=== PATIENT | male | born 1935 | race African-American/Black ===

== ENCOUNTER 2019-01-30 18:23 | Inpatient (IN) | payer MEDICARE, OTHER ==
[~2019-01-30] VITALS: Ht 170.2 cm; Wt 94.3 kg
[~2019-01-30 18:23] MED LIST: AMLO10TA80 PO; ATEN-42 PO; HYDR12.529 PO; NAPR375T5 PO; SALS500T19 PO; SIMV20TA6 PO; gabapentin; lisinopril; methocarbamol
[2019-01-30] MEDS ORDERED: LEVETIRACETAM 500MG PREMIX 100 ML IV ONE (19:15)
[2019-01-30] MEDS ORDERED: SODIUM CHLORIDE 0.9% 500 ML IV ONE (19:17)
[2019-01-30 20:14] LABS: BASOPHILS % 0.6 % (0.0-2.0); EOSINOPHILS % 0.8 % (0.0-5.0); HEMATOCRIT. 33.6 % (42.0-52.0); HEMOGLOBIN. 11.1 g/dL (14.0-18.0); LYMPHOCYTES % 13.3 % (20.0-50.0); MEAN CORPUSCULAR HEMOGLOBIN 29.3 pg (28.0-32.0); MEAN CORPUSCULAR VOLUME 88.6 fL (80.0-94.0); MEAN PLATELET VOLUME 8.3 fl (7.4-10.4); MONOCYTES % 8.9 % (2.0-8.0); NEUTROPHILS % 76.4 % (40.0-76.0); PLATELET 351 x1000/uL (130-400); RED BLOOD CELL COUNT 3.79 mill/uL (4.7-6.1)
[2019-01-30 20:21] LABS: CHLORIDE 106 mEq/L (98-107)
[2019-01-31] VITALS (53 sets, daily range): BP systolic 59–161; BP diastolic 16–117
[2019-01-31 00:23] LABS: INR 1.1; PARTIAL THROMBOPLASTIN TIME 26.8 sec (23.4-31.0); PROTHROMBIN TIME 11.6 sec (9.6-11.0)
[2019-01-31] MEDS ORDERED: NICARDIPINE 100 MG in SODIUM CHLORIDE 0.9% 60 ML IV PRN (01:30)
[2019-01-31] MEDS: DEXT 5%/LACTATED RINGERS 1,000 ML IV SCH ×2 (02:19→17:43)
[2019-01-31 05:38] LABS: BASOPHILS % 0.5 % (0.0-2.0); HEMATOCRIT. 35.6 % (42.0-52.0); HEMOGLOBIN. 11.4 g/dL (14.0-18.0); LYMPHOCYTES % 9.3 % (20.0-50.0); MEAN CORPUSCULAR HEMOGLOBIN 29.2 pg (28.0-32.0); MEAN CORPUSCULAR VOLUME 91.3 fL (80.0-94.0); MEAN PLATELET VOLUME 8.5 fl (7.4-10.4); MONOCYTES % 7.4 % (2.0-8.0); NEUTROPHILS % 82.8 % (40.0-76.0); PLATELET 288 x1000/uL (130-400); RED CELL DISTRIBUTION WIDTH 17.1 % (11.6-14.6)
[2019-01-31 05:53] LABS: CHLORIDE 106 mEq/L (98-107)
[2019-01-31] MEDS ORDERED: DEXAMETHASONE 4MG/ML 1ML VIAL IV SCH (06:00)
[2019-01-31] MEDS: LEVETIRACETAM 500 MG in SODIUM CHLORIDE 0.9% 100 ML IV SCH ×2 (08:58→21:12)
[2019-01-31] MEDS: PANTOPRAZOLE SODIUM 40 MG/VIAL IV SCH (08:58)
[2019-01-31] MEDS ORDERED: LEVETIRACETAM 500 MG in SODIUM CHLORIDE 0.9% 100 ML IV SCH (09:00)
[2019-01-31] MEDS: PILOCARPINE HCL 4% OPHTH DROPS 15ML BOTHEYE SCH ×2 (15:39→21:12)
[2019-01-31] MEDS ORDERED: ONDANSETRON HCL 4MG/2ML INJ IV NR (16:45)
[2019-01-31] MEDS ORDERED: ONDANSETRON HCL 4MG TABLET PO PRN (18:00)
[2019-01-31] MEDS ORDERED: ONDANSETRON HCL 4MG/2ML INJ IV PRN (18:45)
[2019-01-31] MEDS: ATORVASTATIN CALCIUM 20MG TABLET PO SCH (21:12)
[2019-02-01] VITALS (51 sets, daily range): BP systolic 44–165; BP diastolic 20–103
[2019-02-01 05:27] LABS: BASOPHILS % 0.3 % (0.0-2.0); HEMOGLOBIN. 10.8 g/dL (14.0-18.0); LYMPHOCYTES % 9.3 % (20.0-50.0); MEAN CORPUSCULAR VOLUME 91.1 fL (80.0-94.0); MEAN PLATELET VOLUME 8.7 fl (7.4-10.4); MONOCYTES % 10.6 % (2.0-8.0); NEUTROPHILS % 79.8 % (40.0-76.0); PLATELET 232 x1000/uL (130-400); RED BLOOD CELL COUNT 3.73 mill/uL (4.7-6.1); RED CELL DISTRIBUTION WIDTH 17.1 % (11.6-14.6)
[2019-02-01] MEDS: PILOCARPINE HCL 4% OPHTH DROPS 15ML BOTHEYE SCH ×3 (08:17→21:53)
[2019-02-01] MEDS: PANTOPRAZOLE SODIUM 40 MG/VIAL IV SCH (08:55)
[2019-02-01] MEDS: LEVETIRACETAM 500 MG in SODIUM CHLORIDE 0.9% 100 ML IV SCH ×2 (08:56→21:53)
[2019-02-01] MEDS: MORPHINE SULFATE 4 MG/ML CPJ (NOT FOR IM USE) IV PRN ×3 (10:07→21:53)
[2019-02-01] MEDS: DEXT 5%/LACTATED RINGERS 1,000 ML IV SCH (11:31)
[2019-02-01] MEDS: ATENOLOL 50 MG TABLET PO SCH (11:31)
[2019-02-01] MEDS ORDERED: SODIUM POLYSTYRENE SULFONATE 15 G/60 ML BOT PO SCH (12:00)
[2019-02-01 12:15] LABS: PHOSPHORUS 4.9 mg/dL (2.5-4.9)
[2019-02-01] MEDS ORDERED: SODIUM CHLORIDE 0.9% 1,000 ML IV ONE (13:15)
[2019-02-01] MEDS ORDERED: IPRATROPIUM/ALBUTEROL 0.5-3(2.5)MG/3ML NEB HHN PRN (13:15)
[2019-02-01] MEDS ORDERED: LEVOFLOXACIN 500MG PREMIX 100 ML IV SCH (15:00)
[2019-02-01 15:09] LABS: BG FRACTION INSPIRED OXYGEN 21; BG HCO3 ACT 2.2 mmol/L (22.0-26.0); BG PCO2 10.6 mmHg (35.0-45.0); BG PH 6.939 (7.350-7.450); BG PO2 44.6 mmHg (75.0-100.0); BG SAMPLE SITE LEFT BRACHIAL; BG TOTAL HEMOGLOBIN < 4.5 g/dL (12.0-18.0); BG VENT MODE ROOM AIR
[2019-02-01] MEDS ORDERED: SODIUM BICARBONATE 8.4% 1 MEQ/ML 50ML SYR IV NR (15:45)
[2019-02-01 15:59] LABS: BG BASE EXCESS -20.1 mmol/L (-2.0-2.0); BG CARBOXYHEMOGLOBIN 0.3 % (0.5-1.5); BG DEOXYHEMOGLOBIN 2.8 % (0.0-5.0); BG FRACTION INSPIRED OXYGEN 21; BG HCO3 ACT 6.9 mmol/L (22.0-26.0); BG METHEMOGLOBIN 0.4 % (0.0-1.5); BG OXYGEN SATURATION 97.2 % (92.0-98.5); BG OXYHEMOGLOBIN 96.5 % (94.0-97.0); BG PCO2 20.2 mmHg (35.0-45.0); BG PO2 119.1 mmHg (75.0-100.0); BG SAMPLE SITE LEFT BRACHIAL; BG TOTAL HEMOGLOBIN 11.1 g/dL (12.0-18.0); BG VENT MODE ROOM AIR
[2019-02-01] MEDS ORDERED: RACEPINEPHRINE 2.25% 0.5ML NEB VIAL HHN NR (16:00)
[2019-02-01] MEDS ORDERED: RACEPINEPHRINE 2.25% 0.5ML NEB VIAL HHN PRN (16:00)
[2019-02-01] MEDS: SODIUM BICARBONATE 150 MEQ in DEXTROSE 5% WATER 1,000 ML IV SCH ×3 (16:14→17:32)
[2019-02-01] MEDS ORDERED: SODIUM BICARBONATE 8.4% MEQ/ML 50ML VIAL IV NR (16:19)
[2019-02-01] MEDS ORDERED: VANCOMYCIN 1 G PREMIX 200 ML IV SCH (18:00)
[2019-02-01] MEDS: ATORVASTATIN CALCIUM 20MG TABLET PO SCH (21:00)
[2019-02-01] MEDS ORDERED: NOREPINEPHRINE 8 MG in DEXT 5% WATER 242 ML IV PRN (21:30)
[2019-02-01] MEDS ORDERED: SODIUM CHLORIDE 0.9% 1000ML BAG (SEPSIS BOLUS) IV NR ×2 (22:00→22:30)
[2019-02-01] MEDS ORDERED: CEFTRIAXONE 2 G PREMIX 50 ML IV SCH (22:00)
[2019-02-01 23:20] LABS: CLARITY URINE TURBID (CLEAR); KETONES URINE TRACE (NEGATIVE); LEUKOCYTE ESTERASE URINE 2+ (NEGATIVE); NITRITE URINE NEGATIVE (NEGATIVE); OCCULT BLOOD URINE 3+ (NEGATIVE); PROTEIN URINE 3+ (NEGATIVE); SPECIFIC GRAVITY URINE 1.009 (1.005-1.030); UROBILINOGEN URINE 0.2 E.U./dL (0.2-1.0)
[2019-02-01 23:25] LABS: COLOR URINE BLOODY (YELLOW)
[2019-02-01] MEDS: CEFTRIAXONE 2 G in DEXTROSE 5% WATER 50 ML IV SCH (23:49)
[2019-02-02] VITALS (147 sets, daily range): BP systolic 53–180; BP diastolic 23–126
[2019-02-02] MEDS: SODIUM BICARBONATE 150 MEQ in DEXTROSE 5% WATER 1,000 ML IV SCH ×3 (00:40→20:29)
[2019-02-02] MEDS: MORPHINE SULFATE 4 MG/ML CPJ (NOT FOR IM USE) IV PRN ×4 (01:04→20:38)
[2019-02-02] MEDS: PILOCARPINE HCL 4% OPHTH DROPS 15ML BOTHEYE SCH ×3 (04:59→21:06)
[2019-02-02 05:44] LABS: HEMOGLOBIN. 11.1 g/dL (14.0-18.0); MEAN CORPUSCULAR HEMOGLOBIN 28.9 pg (28.0-32.0); MEAN CORPUSCULAR VOLUME 91.1 fL (80.0-94.0); MEAN PLATELET VOLUME 9.1 fl (7.4-10.4); PLATELET 147 x1000/uL (130-400); RED BLOOD CELL COUNT 3.84 mill/uL (4.7-6.1); RED CELL DISTRIBUTION WIDTH 17.1 % (11.6-14.6)
[2019-02-02 05:56] LABS: INR 1.6; PARTIAL THROMBOPLASTIN TIME 29.2 sec (23.4-31.0); PROTHROMBIN TIME 15.9 sec (9.6-11.0)
[2019-02-02] MEDS ORDERED: DEXTROSE 50% WATER 50ML SYRINGE IV NR (06:45)
[2019-02-02] MEDS ORDERED: POVIDONE-IODINE OINT 28.4GM TOP ONE (06:53)
[2019-02-02] MEDS ORDERED: BACITRACIN 15GM TUBE TOP ONE (06:53)
[2019-02-02] MEDS ORDERED: THROMBIN (BOVINE) 5000 UNITS/VIAL TOP ONE (06:54)
[2019-02-02] MEDS ORDERED: LIDOCAINE HCL/EPINEPHRINE 1%-EPI 1:100,000 20 ML VIAL ONE (06:54)
[2019-02-02] MEDS ORDERED: BACITRACIN 50,000 UNITS/VIAL ONE (06:54)
[2019-02-02] MEDS ORDERED: INSULIN REGULAR (HUMULIN R) 300UNITS/3ML IV NR (07:00)
[2019-02-02] MEDS ORDERED: FENTANYL CITRATE/PF 50MCG/ML 2ML VIAL ONE (07:09)
[2019-02-02] MEDS ORDERED: ROCURONIUM BROMIDE 10MG/ML VIAL 5ML IV ONE ×2 (07:09→07:20)
[2019-02-02] MEDS ORDERED: PROPOFOL 200MG/20ML VIAL IV ONE (07:09)
[2019-02-02] MEDS ORDERED: NEOSTIGMINE METHYLSULFATE 1MG/ML 10 ML VIAL ONE (07:09)
[2019-02-02] MEDS ORDERED: INSULIN REGULAR (HUMULIN R) 300UNITS/3ML ONE (07:11)
[2019-02-02] MEDS ORDERED: MIDAZOLAM HCL 2 MG/2 ML VIAL ONE (07:16)
[2019-02-02] MEDS ORDERED: CALCIUM CHLORIDE 1GM/10ML SYR IV ONE (08:02)
[2019-02-02] MEDS ORDERED: NICARDIPINE 100 MG in SODIUM CHLORIDE 0.9% 60 ML IV PRN (08:15)
[2019-02-02] MEDS: LEVETIRACETAM 500 MG in SODIUM CHLORIDE 0.9% 100 ML IV SCH ×2 (09:00→20:46)
[2019-02-02] MEDS: ATENOLOL 50 MG TABLET PO SCH (09:00)
[2019-02-02 09:33] LABS: BG BASE EXCESS -8.6 mmol/L (-2.0-2.0); BG CARBOXYHEMOGLOBIN 0.3 % (0.5-1.5); BG DEOXYHEMOGLOBIN 0.4 % (0.0-5.0); BG HCO3 ACT 16.8 mmol/L (22.0-26.0); BG METHEMOGLOBIN 0.3 % (0.0-1.5); BG OXYGEN SATURATION 99.6 % (92.0-98.5); BG PCO2 34.5 mmHg (35.0-45.0); BG PH 7.306 (7.350-7.450); BG PO2 528.3 mmHg (75.0-100.0); BG SAMPLE SITE RIGHT RADIAL; BG TIDAL VOLUME(mL) 500 mL; BG TOTAL HEMOGLOBIN 11.6 g/dL (12.0-18.0); BG VENT MODE VENT - A/C; BG VENT RATE 10 set
[2019-02-02 09:50] LABS: INR 1.6; PROTHROMBIN TIME 16.1 sec (9.6-11.0)
[2019-02-02 09:54] LABS: PHOSPHORUS 6.2 mg/dL (2.5-4.9)
[2019-02-02 12:24] LABS: PLATELET ESTIMATE NORMAL
[2019-02-02 12:25] LABS: CREATINE KINASE 548 IU/L (39-308)
[2019-02-02] MEDS ORDERED: PHYTONADIONE 10MG/ML AMP SUBCUT NR (13:15)
[2019-02-02] MEDS ORDERED: SODIUM POLYSTYRENE SULFONATE 15 G/60 ML BOT PO NR (14:00)
[2019-02-02] MEDS: PHENYLEPHRINE 40 MG in DEXT 5% WATER 246 ML IV PRN ×2 (15:00→20:28)
[2019-02-02] MEDS ORDERED: LEVOFLOXACIN 250MG PREMIX 50 ML IV SCH (15:00)
[2019-02-02] MEDS ORDERED: MORPHINE SULFATE 4 MG/ML CPJ (NOT FOR IM USE) IV NR (17:45)
[2019-02-02] MEDS ORDERED: NOREPINEPHRINE 8 MG in SODIUM CHLORIDE 0.9% 242 ML IV PRN ×2 (20:35→22:50)
[2019-02-02] MEDS ORDERED: PHENYLEPHRINE 40 MG in SODIUM CHLORIDE 0.9% 246 ML IV PRN (20:35)
[2019-02-02] MEDS ORDERED: SODIUM POLYSTYRENE SULFONATE 15 G/60 ML BOT NG NR (20:45)
[2019-02-02] MEDS: ATORVASTATIN CALCIUM 20MG TABLET PO SCH (20:46)
[2019-02-02] MEDS ORDERED: INSULIN LISPRO 100 UNITS/ML SUBCUT SCH (21:00)
[2019-02-02] MEDS ORDERED: BLOOD SUGAR DIAGNOSTIC STRIP TEST SCH (21:00)
[2019-02-03] VITALS (34 sets, daily range): BP systolic 51–179; BP diastolic 25–128
[2019-02-03] MEDS: BLOOD SUGAR DIAGNOSTIC STRIP TEST SCH ×2 (00:04→06:17)
[2019-02-03] MEDS: DEXTROSE 50% WATER 50ML SYRINGE IV PRN ×3 (00:10→08:05)
[2019-02-03] MEDS: CEFTRIAXONE 2 G in DEXTROSE 5% WATER 50 ML IV SCH (00:11)
[2019-02-03] MEDS: MORPHINE SULFATE 4 MG/ML CPJ (NOT FOR IM USE) IV PRN ×2 (01:21→05:17)
[2019-02-03] MEDS: PHENYLEPHRINE 40 MG in SODIUM CHLORIDE 0.9% 246 ML IV PRN ×2 (02:11→06:18)
[2019-02-03] MEDS: SODIUM BICARBONATE 150 MEQ in DEXTROSE 5% WATER 1,000 ML IV SCH (04:45)
[2019-02-03 06:00] LABS: HEMATOCRIT. 41.4 % (42.0-52.0); HEMOGLOBIN. 12.4 g/dL (14.0-18.0); MEAN CORPUSCULAR HEMOGLOBIN 29.3 pg (28.0-32.0); MEAN CORPUSCULAR VOLUME 97.8 fL (80.0-94.0); PLATELET 92 x1000/uL (130-400); RED BLOOD CELL COUNT 4.23 mill/uL (4.7-6.1); RED CELL DISTRIBUTION WIDTH 18.1 % (11.6-14.6)
[2019-02-03] MEDS: INSULIN LISPRO 100 UNITS/ML SUBCUT SCH ×2 (06:00)
[2019-02-03] MEDS: PILOCARPINE HCL 4% OPHTH DROPS 15ML BOTHEYE SCH (06:17)
[2019-02-03 06:26] LABS: INR 2.5; PARTIAL THROMBOPLASTIN TIME 40.8 sec (23.4-31.0); PROTHROMBIN TIME 25.1 sec (9.6-11.0)
[2019-02-03] MEDS ORDERED: DEXTROSE 10% WATER 500 ML IV ONE (08:00)
[2019-02-03 08:25] LABS: BG BASE EXCESS -20.4 mmol/L (-2.0-2.0); BG CARBOXYHEMOGLOBIN 0.3 % (0.5-1.5); BG DEOXYHEMOGLOBIN 0.5 % (0.0-5.0); BG FRACTION INSPIRED OXYGEN 100; BG HCO3 ACT 7.3 mmol/L (22.0-26.0); BG METHEMOGLOBIN 0.2 % (0.0-1.5); BG OXYGEN SATURATION 99.5 % (92.0-98.5); BG PCO2 22.8 mmHg (35.0-45.0); BG PH 7.121 (7.350-7.450); BG PO2 477.7 mmHg (75.0-100.0); BG SAMPLE SITE RIGHT BRACHIAL; BG TIDAL VOLUME(mL) 500 mL; BG VENT MODE VENT - A/C; BG VENT RATE 12 set
[2019-02-03] MEDS ORDERED: SODIUM BICARBONATE 8.4% 1 MEQ/ML 50ML SYR IV NR (08:30)
[2019-02-03] MEDS: ATENOLOL 50 MG TABLET PO SCH (08:47)
[2019-02-03 08:58] LABS: CHLORIDE 98 mEq/L (98-107)
[2019-02-03 09:46] LABS: NUCLEATED RED BLOOD CELLS 48 /100 WBC; PLATELET ESTIMATE DECREASED
[2019-02-03 11:21] LABS: PHOSPHORUS 9.2 mg/dL (2.5-4.9)
== END 2019-02-03 10:06 | disposition expired | DRG 853 ==
LOC: ER 18:23 → MICUSO 21:46 → EDBEDREQ 21:48 → EDBEDREQTM 21:48 → ENRESERV 23:06 → MICUSO 01-31 19:15
PROVIDERS: ADMIT Internal Medicine; ATTEND Internal Medicine
PROC: 00C40ZZ Extirpation of Matter from Intracranial Subdural Space, Open Approach (ICD-10-PCS; principal; 2019-02-02)
PROC: 00U207Z Supplement Dura Mater with Autologous Tissue Substitute, Open Approach (ICD-10-PCS; 2019-02-02)
PROC: 4A103BD Monitoring of Intracranial Pressure, Percutaneous Approach (ICD-10-PCS; 2019-02-02)
DX: A41.9 Sepsis, unspecified organism (principal); J96.00 Acute respiratory failure, unspecified whether with hypoxia or hypercapnia; I62.03 Nontraumatic chronic subdural hemorrhage; I62.02 Nontraumatic subacute subdural hemorrhage; N17.9 Acute kidney failure, unspecified; G93.40 Encephalopathy, unspecified; E87.2 Acidosis; I47.1 Supraventricular tachycardia; I82.403 Acute embolism and thrombosis of unspecified deep veins of lower extremity, bilateral; D68.9 Coagulation defect, unspecified; Z66 Do not resuscitate; G40.909 Epilepsy, unspecified, not intractable, without status epilepticus; I12.9 Hypertensive chronic kidney disease with stage 1 through stage 4 chronic kidney disease, or unspecified chronic kidney disease; E78.00 Pure hypercholesterolemia, unspecified; E78.5 Hyperlipidemia, unspecified; I25.10 Atherosclerotic heart disease of native coronary artery without angina pectoris; R65.20 Severe sepsis without septic shock; F03.90 Unspecified dementia, unspecified severity, without behavioral disturbance, psychotic disturbance, mood disturbance, and anxiety; N18.9 Chronic kidney disease, unspecified; D64.9 Anemia, unspecified; E87.5 Hyperkalemia; T38.0X5A Adverse effect of glucocorticoids and synthetic analogues, initial encounter; R40.2430 Glasgow coma scale score 3-8, unspecified time; D69.6 Thrombocytopenia, unspecified; I46.9 Cardiac arrest, cause unspecified; I25.2 Old myocardial infarction; Z79.899 Other long term (current) drug therapy; Y92.89 Other specified places as the place of occurrence of the external cause; Z95.828 Presence of other vascular implants and grafts; Z91.81 History of falling; Z88.0 Allergy status to penicillin; Z87.891 Personal history of nicotine dependence; Z86.73 Personal history of transient ischemic attack (TIA), and cerebral infarction without residual deficits; Z86.718 Personal history of other venous thrombosis and embolism; Z78.1 Physical restraint status
CPT/HCPCS: 36415; 36600; 70551; 71045; 74018; 76770; 80048; 80202; 82375; 82550; 82570; 82805; 82962; 83605; 83735; 84100; 84132; 84300; 84484; 85651; 86850; 86900; 87070; 87075; 88305; 93005; 93306; 93970; 96365; 96375; 99285; C1713; C1758; C9113; J0696; J1100; J1815; J1953; J1956; J2250; J2270; J2370; J2405; J2704; J2710; J3010; J3370; J3430; J3490; J7030; J7040; J7050; J7060; J7070; J7121; J7620; A4315